=== PATIENT | male | born 1995 | race Caucasian/White ===

== ENCOUNTER 2017-08-19 08:09 | Emergency (ER) | payer MEDICAID ==
[~2017-08-19] VITALS: Ht 170.2 cm; Wt 77.1 kg
[2017-08-19 08:28] VITALS: Ht 170.2 cm; Wt 77.1 kg
[2017-08-19 11:10] VITALS: BP 131/75
== END 2017-08-19 11:11 | disposition home or self-care (01) ==
LOC: ED 08:09
DX: L05.01 Pilonidal cyst with abscess (principal)
CPT/HCPCS: J2001; J3490

== ENCOUNTER 2018-06-02 14:52 | Emergency (ER) | payer SELFPAY ==
[~2018-06-02] VITALS: Ht 170.2 cm; Wt 75.7 kg
[2018-06-02 15:13] VITALS: Ht 170.2 cm; Wt 75.7 kg
[2018-06-02 15:58] VITALS: BP 127/65
== END 2018-06-02 15:58 | disposition home or self-care (01) ==
LOC: ED 14:52
DX: S20.219A Contusion of unspecified front wall of thorax, initial encounter (principal); S50.312A Abrasion of left elbow, initial encounter; V09.9XXA Pedestrian injured in unspecified transport accident, initial encounter; Y93.89 Activity, other specified; Y92.89 Other specified places as the place of occurrence of the external cause; Y99.8 Other external cause status